=== PATIENT | female | born 1945 | race Caucasian/White ===

== ENCOUNTER 2017-09-16 13:22 | Emergency (ER) | payer MEDICARE ==
[~2017-09-16] VITALS: Ht 157.5 cm; Wt 101.6 kg
[2017-09-16 13:47] VITALS: BP 146/85
[2017-09-16] MEDS ORDERED: POTA20PA25 PO (14:49)
[2017-09-16] MEDS ORDERED: FURO-93 PO (14:49)
[2017-09-16] MEDS ORDERED: TIOT18CA INH (14:49)
[2017-09-16 15:19] LABS: BASOPHILS % (AUTO) 1 % (0-1); EOSINOPHILS # (AUTO) 0.44 x10^3/uL (0-0.4); EOSINOPHILS % (AUTO) 5 % (1-7); LYMPHOCYTES # (AUTO) 1.69 x10^3/uL (1-3.4); LYMPHOCYTES % (AUTO) 18 % (22-44); MD NO; MEAN CORPUSCULAR HEMOGLOBIN 30.1 pg (27.0-34.8); MEAN CORPUSCULAR VOLUME 91.2 fL (80-100); MEAN PLATELET VOLUME 7.5 fL (7.4-10.4); MONOCYTES # (AUTO) 0.79 x10^3/uL (0.2-0.8); MONOCYTES % (AUTO) 8 % (2-9); NEUTROPHILS # (AUTO) 6.47 x10^3/uL (1.8-6.8); NEUTROPHILS % (AUTO) 68 % (42-75); PLATELET COUNT 359 x10^3/uL (130-400); RED BLOOD COUNT 4.89 x10^6/uL (3.82-5.3); RED CELL DISTRIBUTION WIDTH 14.5 % (9.6-15.2)
[2017-09-16 15:21] LABS: ALANINE AMINOTRANSFERASE 34 U/L (12-78); ALBUMIN 3.5 g/dL (3.4-5.0); ANION GAP 9 mmol/L (5-15); CALCIUM 9.3 mg/dL (8.5-10.1); CHLORIDE 102 mmol/L (98-107); CREATININE 1.19 mg/dL (0.55-1.02)
[2017-09-16 15:25] LABS: ALKALINE PHOSPHATASE 134 U/L (45-117); BILIRUBIN,TOTAL 0.2 mg/dL (0.2-1.0)
[2017-09-16 15:32] LABS: INTERNATIONAL NORMALIZED RATIO 0.96 (0.93-1.1)
== END 2017-09-16 16:54 | disposition home or self-care (01) ==
LOC: ED 16:35
DX: G89.29 Other chronic pain (principal); I83.213 Varicose veins of right lower extremity with both ulcer of ankle and inflammation; I83.223 Varicose veins of left lower extremity with both ulcer of ankle and inflammation; L97.319 Non-pressure chronic ulcer of right ankle with unspecified severity; L97.329 Non-pressure chronic ulcer of left ankle with unspecified severity; J44.9 Chronic obstructive pulmonary disease, unspecified; Z87.891 Personal history of nicotine dependence
CPT/HCPCS: 36415; 80053; 83880; 85025; 85610; 85730; 93970; 99285

== ENCOUNTER 2017-11-26 16:50 | Inpatient (IN) | payer MEDICARE ==
[~2017-11-26] VITALS: Ht 154.9 cm; Wt 106.4 kg
[~2017-11-26 16:50] MED LIST: ENOXAPARIN 40 MG/0.4 ML SQ SCH; FURO-93 PO; POTA20PA25 PO; TIOT18CA INH
[2017-11-26] MEDS ORDERED: SODIUM CHLORIDE FLUSH 10ML SYR IVF ONE (17:30)
[2017-11-26] MEDS ORDERED: ENOXAPARIN 100 MG/ML ONE (17:39)
[2017-11-26] MEDS: DILTIAZEM 125 MG in SODIUM CHLORIDE 0.9% 100 ML IV SCH ×2 (17:41→21:07)
[2017-11-26 17:53] LABS: BASOPHILS % (AUTO) 1 % (0-1); EOSINOPHILS # (AUTO) 0.43 x10^3/uL (0-0.4); EOSINOPHILS % (AUTO) 4 % (1-7); LYMPHOCYTES % (AUTO) 18 % (22-44); MD NO; MEAN CORPUSCULAR HEMOGLOBIN 31.4 pg (27.0-34.8); MEAN CORPUSCULAR HGB CONC 33.7 g/dL (32.4-35.8); MEAN CORPUSCULAR VOLUME 93.3 fL (80-100); MEAN PLATELET VOLUME 8.1 fL (7.4-10.4); MONOCYTES # (AUTO) 0.74 x10^3/uL (0.2-0.8); MONOCYTES % (AUTO) 7 % (2-9); NEUTROPHILS # (AUTO) 7.18 x10^3/uL (1.8-6.8); NEUTROPHILS % (AUTO) 70 % (42-75); PLATELET COUNT 323 x10^3/uL (130-400); RED CELL DISTRIBUTION WIDTH 15.1 % (9.6-15.2)
[2017-11-26] MEDS ORDERED: DILTIAZEM 5 MG/ML, 5ML IVPush ONE (18:00)
[2017-11-26] MEDS ORDERED: ENOXAPARIN 100 MG/ML SQ ONE (18:00)
[2017-11-26 18:02] LABS: ALBUMIN 3.6 g/dL (3.4-5.0); ANION GAP 8 mmol/L (5-15); CALCIUM 9.1 mg/dL (8.5-10.1); CHLORIDE 102 mmol/L (98-107); INTERNATIONAL NORMALIZED RATIO 1.01 (0.93-1.1); PROTHROMBIN TIME 10.4 Seconds (9.6-11.5)
[2017-11-26 18:08] LABS: ALANINE AMINOTRANSFERASE 42 U/L (12-78); ALKALINE PHOSPHATASE 147 U/L (45-117); BILIRUBIN,TOTAL 0.3 mg/dL (0.2-1.0); CREATININE 1.07 mg/dL (0.55-1.02); TOTAL PROTEIN 8.1 g/dL (6.4-8.2); TROPONIN I < 0.015 ng/mL (0.000-0.045)
[2017-11-26] MEDS ORDERED: DOCUSATE 100 MG CAPSULE PO PRN (19:30)
[2017-11-26] MEDS ORDERED: GLUCAGON 1 MG IM PRN (19:30)
[2017-11-26] MEDS: ENOXAPARIN 40 MG/0.4 ML SQ SCH ×2 (19:30→20:29)
[2017-11-26] MEDS ORDERED: DILTIAZEM 5 MG/ML, 5ML IVPush PRN (19:30)
[2017-11-26] MEDS ORDERED: DEXTROSE 4 GM TAB.CHEW PO PRN (19:30)
[2017-11-26] MEDS ORDERED: DEXTROSE 50%, 50ML SYRINGE IVPush PRN (19:30)
[2017-11-26] MEDS ORDERED: TEMAZEPAM 15 MG CAPSULE PO PRN (19:30)
[2017-11-26] MEDS ORDERED: ONDANSETRON ODT 4 MG PO PRN (19:30)
[2017-11-26] MEDS ORDERED: POTASSIUM CHLORIDE 20 MEQ TAB.ER.PRT PO ONE (19:30)
[2017-11-26 20:00] LABS: HEMOGLOBIN A1C 5.6 % (4.2-6.3)
[2017-11-26 20:04] VITALS: BP 136/71
[2017-11-26] MEDS: NICOTINE 14MG/24 HR PATCH.TD24 TD SCH (20:29)
[2017-11-26] MEDS: DILTIAZEM 30 MG TABLET PO SCH (20:29)
[2017-11-26] MEDS: INSULIN LISPRO 100 UNITS/ML, PEN SQ-INSULIN SCH (20:30)
[2017-11-26] MEDS: DOXYCYCLINE 100MG TABLET PO SCH (20:30)
[2017-11-26] MEDS: SODIUM CHLORIDE FLUSH 10ML SYR IVF SCH (20:30)
[2017-11-26] MEDS ORDERED: ALBUTEROL SULFATE 2.5 MG/3 ML NPPB PRN (20:30)
[2017-11-26 22:34] VITALS: BP 136/72
[2017-11-27 00:10] LABS: TROPONIN I < 0.015 ng/mL (0.000-0.045)
[2017-11-27 02:04] VITALS: BP 122/73
[2017-11-27] MEDS: DILTIAZEM 30 MG TABLET PO SCH ×4 (02:06→19:39)
[2017-11-27] MEDS ORDERED: ALBU18HF IH (05:01)
[2017-11-27] MEDS: ENOXAPARIN 40 MG/0.4 ML SQ SCH (05:25)
[2017-11-27] MEDS: ASPIRIN 325 MG TABLET EC PO SCH (05:26)
[2017-11-27 06:13] LABS: BASOPHILS # (AUTO) 0.08 x10^3/uL (0-0.1); BASOPHILS % (AUTO) 1 % (0-1); EOSINOPHILS # (AUTO) 0.46 x10^3/uL (0-0.4); EOSINOPHILS % (AUTO) 4 % (1-7); LYMPHOCYTES # (AUTO) 1.77 x10^3/uL (1-3.4); LYMPHOCYTES % (AUTO) 16 % (22-44); MD NO; MEAN CORPUSCULAR HEMOGLOBIN 31.4 pg (27.0-34.8); MEAN CORPUSCULAR HGB CONC 33.3 g/dL (32.4-35.8); MEAN CORPUSCULAR VOLUME 94.1 fL (80-100); MEAN PLATELET VOLUME 7.8 fL (7.4-10.4); MONOCYTES # (AUTO) 0.91 x10^3/uL (0.2-0.8); MONOCYTES % (AUTO) 8 % (2-9); NEUTROPHILS # (AUTO) 7.64 x10^3/uL (1.8-6.8); NEUTROPHILS % (AUTO) 70 % (42-75); PLATELET COUNT 311 x10^3/uL (130-400); RED BLOOD COUNT 4.59 x10^6/uL (3.82-5.3); RED CELL DISTRIBUTION WIDTH 15.4 % (9.6-15.2)
[2017-11-27 06:27] LABS: TROPONIN I < 0.015 ng/mL (0.000-0.045)
[2017-11-27] MEDS: INSULIN LISPRO 100 UNITS/ML, PEN SQ-INSULIN SCH ×4 (07:00→19:58)
[2017-11-27] MEDS: ALBUTEROL/IPRATROPIUM 2.5MG/0.5MG, 3 ML NPPB SCH ×4 (07:17→19:33)
[2017-11-27 07:24] VITALS: BP 136/84
[2017-11-27 07:50] LABS: ALBUMIN 3.5 g/dL (3.4-5.0); ANION GAP 9 mmol/L (5-15); CALCIUM 9.3 mg/dL (8.5-10.1); CHLORIDE 103 mmol/L (98-107)
[2017-11-27 08:00] LABS: ALANINE AMINOTRANSFERASE 38 U/L (12-78); ALKALINE PHOSPHATASE 137 U/L (45-117); BILIRUBIN,TOTAL 0.4 mg/dL (0.2-1.0); CHOL/HDL RATIO 2.4; CHOLESTEROL, TOTAL 181 mg/dL (140-239); CREATININE 0.94 mg/dL (0.55-1.02); FREE T4 (FREE THYROXINE) 1.09 ng/dL (0.76-1.46); HDL CHOL % 43 % (28-40); HDL CHOLESTEROL (DIRECT) 77 mg/dL (40-60); LDL CHOLESTEROL,CALCULATED 76 mg/dL (54-169); TOTAL PROTEIN 7.9 g/dL (6.4-8.2); TRIGLYCERIDES 142 mg/dL (50-200); VLDL CHOLESTEROL 28 mg/dL (0-25)
[2017-11-27] MEDS ORDERED: POTASSIUM CHLORIDE 20 MEQ TAB.ER.PRT PO ONE (09:00)
[2017-11-27] MEDS: DOXYCYCLINE 100MG TABLET PO SCH ×2 (09:39→19:39)
[2017-11-27] MEDS: GUAIFENESIN/DM 200-20MG, 10ML UDC PO PRN (09:39)
[2017-11-27] MEDS: methylPREDNISolone SOD SUCC 40 MG/ML IV SCH (09:39)
[2017-11-27] MEDS: SODIUM CHLORIDE FLUSH 10ML SYR IVF SCH ×2 (09:40→19:38)
[2017-11-27 10:46] LABS: HCT (SEDRATE) 43.2 % (34.6-47.8)
[2017-11-27 12:29] VITALS: BP 135/82
[2017-11-27] MEDS: NICOTINE 14MG/24 HR PATCH.TD24 TD SCH (18:49)
[2017-11-27 20:32] VITALS: BP 116/75
[2017-11-28 00:52] VITALS: BP 137/84
[2017-11-28] MEDS: DILTIAZEM 30 MG TABLET PO SCH ×2 (02:02→07:52)
[2017-11-28] MEDS: GUAIFENESIN/DM 200-20MG, 10ML UDC PO PRN ×2 (02:07→10:56)
[2017-11-28] MEDS: DILTIAZEM 5 MG/ML, 10ML IVPush PRN ×3 (03:49→16:38)
[2017-11-28] MEDS ORDERED: DILTIAZEM 5 MG/ML, 10ML IVPush ONE (05:00)
[2017-11-28 05:04] LABS: BASOPHILS # (AUTO) 0.01 x10^3/uL (0-0.1); BASOPHILS % (AUTO) 0 % (0-1); EOSINOPHILS % (AUTO) 0 % (1-7); LYMPHOCYTES # (AUTO) 0.87 x10^3/uL (1-3.4); LYMPHOCYTES % (AUTO) 7 % (22-44); MD NO; MEAN CORPUSCULAR HEMOGLOBIN 31.1 pg (27.0-34.8); MEAN CORPUSCULAR VOLUME 94.3 fL (80-100); MEAN PLATELET VOLUME 7.8 fL (7.4-10.4); MONOCYTES # (AUTO) 0.57 x10^3/uL (0.2-0.8); MONOCYTES % (AUTO) 5 % (2-9); NEUTROPHILS # (AUTO) 11.23 x10^3/uL (1.8-6.8); NEUTROPHILS % (AUTO) 89 % (42-75); PLATELET COUNT 326 x10^3/uL (130-400); RED BLOOD COUNT 4.62 x10^6/uL (3.82-5.3); RED CELL DISTRIBUTION WIDTH 15.6 % (9.6-15.2)
[2017-11-28] MEDS: ALBUTEROL/IPRATROPIUM 2.5MG/0.5MG, 3 ML NPPB SCH ×4 (05:07→20:00)
[2017-11-28] MEDS: ENOXAPARIN 40 MG/0.4 ML SQ SCH (05:11)
[2017-11-28] MEDS: ASPIRIN 325 MG TABLET EC PO SCH (05:11)
[2017-11-28 05:16] LABS: ANION GAP 6 mmol/L (5-15); CALCIUM 9.7 mg/dL (8.5-10.1); CHLORIDE 103 mmol/L (98-107)
[2017-11-28 05:17] LABS: CREATININE 0.95 mg/dL (0.55-1.02)
[2017-11-28] MEDS: INSULIN LISPRO 100 UNITS/ML, PEN SQ-INSULIN SCH ×4 (07:00→21:00)
[2017-11-28] MEDS: FUROSEMIDE 40 MG/4 ML IV SCH ×2 (09:02→16:38)
[2017-11-28] MEDS: DOXYCYCLINE 100MG TABLET PO SCH ×2 (09:05→20:59)
[2017-11-28] MEDS: methylPREDNISolone SOD SUCC 40 MG/ML IV SCH (09:05)
[2017-11-28] MEDS: DILTIAZEM 90 MG CAP.ER.12H PO SCH ×2 (09:05→21:00)
[2017-11-28] MEDS: SODIUM CHLORIDE FLUSH 10ML SYR IVF SCH ×2 (09:06→21:00)
[2017-11-28 09:11] VITALS: BP 161/80
[2017-11-28 13:53] VITALS: BP 125/82
[2017-11-28] MEDS: NICOTINE 14MG/24 HR PATCH.TD24 TD SCH (19:45)
[2017-11-28] MEDS: APIXABAN 5 MG TABLET PO SCH (21:00)
[2017-11-28] MEDS ORDERED: NICOTINE 21 MG/24 HR PATCH.TD24 TD ONE (21:00)
[2017-11-28 21:34] VITALS: BP 121/81
[2017-11-29 02:00] VITALS: BP 113/60
[2017-11-29 04:50] LABS: ANION GAP 6 mmol/L (5-15); CALCIUM 9.2 mg/dL (8.5-10.1); CHLORIDE 102 mmol/L (98-107); CREATININE 1.01 mg/dL (0.55-1.02)
[2017-11-29 07:08] VITALS: BP 146/81
[2017-11-29] MEDS: ALBUTEROL/IPRATROPIUM 2.5MG/0.5MG, 3 ML NPPB SCH ×4 (07:17→20:00)
[2017-11-29] MEDS: INSULIN LISPRO 100 UNITS/ML, PEN SQ-INSULIN SCH ×4 (08:10→22:21)
[2017-11-29] MEDS: APIXABAN 5 MG TABLET PO SCH ×2 (08:46→22:19)
[2017-11-29] MEDS: DOXYCYCLINE 100MG TABLET PO SCH (08:47)
[2017-11-29] MEDS: DILTIAZEM 90 MG CAP.ER.12H PO SCH (08:47)
[2017-11-29] MEDS: FUROSEMIDE 40 MG/4 ML IV SCH (08:47)
[2017-11-29] MEDS: methylPREDNISolone SOD SUCC 40 MG/ML IV SCH (08:47)
[2017-11-29] MEDS: SODIUM CHLORIDE FLUSH 10ML SYR IVF SCH ×2 (08:52→22:20)
[2017-11-29 10:44] VITALS: BP 138/78
[2017-11-29] MEDS: CEFDINIR 300 MG CAPSULE PO SCH ×2 (10:45→22:19)
[2017-11-29] MEDS: DILTIAZEM 30 MG TABLET PO SCH ×2 (10:45→17:04)
[2017-11-29 15:29] VITALS: BP 131/83
[2017-11-29 20:09] VITALS: BP 125/82
[2017-11-29] MEDS: ACETAMINOPHEN 325 MG TABLET PO PRN (20:20)
[2017-11-29] MEDS ORDERED: NICOTINE 21 MG/24 HR PATCH.TD24 TD SCH (21:00)
[2017-11-29] MEDS: DILTIAZEM 120 MG CAP.ER.12H PO SCH (22:19)
[2017-11-29] MEDS: NICOTINE 14MG/24 HR PATCH.TD24 TD SCH (22:20)
[2017-11-30 01:22] VITALS: BP 106/72
[2017-11-30 04:49] LABS: BASOPHILS # (AUTO) 0.03 x10^3/uL (0-0.1); BASOPHILS % (AUTO) 0 % (0-1); EOSINOPHILS % (AUTO) 0 % (1-7); LYMPHOCYTES # (AUTO) 0.96 x10^3/uL (1-3.4); LYMPHOCYTES % (AUTO) 7 % (22-44); MD NO; MEAN CORPUSCULAR HEMOGLOBIN 31.2 pg (27.0-34.8); MEAN CORPUSCULAR VOLUME 94.5 fL (80-100); MEAN PLATELET VOLUME 8.1 fL (7.4-10.4); MONOCYTES # (AUTO) 1.06 x10^3/uL (0.2-0.8); MONOCYTES % (AUTO) 7 % (2-9); NEUTROPHILS # (AUTO) 12.17 x10^3/uL (1.8-6.8); NEUTROPHILS % (AUTO) 86 % (42-75); PLATELET COUNT 298 x10^3/uL (130-400); RED BLOOD COUNT 4.52 x10^6/uL (3.82-5.3); RED CELL DISTRIBUTION WIDTH 15.1 % (9.6-15.2)
[2017-11-30 04:58] LABS: ANION GAP 5 mmol/L (5-15); CALCIUM 9.2 mg/dL (8.5-10.1); CHLORIDE 101 mmol/L (98-107); CREATININE 0.77 mg/dL (0.55-1.02)
[2017-11-30 06:40] VITALS: BP 139/78
[2017-11-30] MEDS: ALBUTEROL/IPRATROPIUM 2.5MG/0.5MG, 3 ML NPPB SCH ×4 (07:00→18:59)
[2017-11-30] MEDS: INSULIN LISPRO 100 UNITS/ML, PEN SQ-INSULIN SCH ×3 (07:40→16:00)
[2017-11-30] MEDS ORDERED: POTASSIUM CHLORIDE 20 MEQ TAB.ER.PRT PO SCH (08:00)
[2017-11-30] MEDS: SODIUM CHLORIDE FLUSH 10ML SYR IVF SCH (09:00)
[2017-11-30] MEDS ORDERED: FUROSEMIDE 20 MG TABLET PO SCH (09:00)
[2017-11-30] MEDS: methylPREDNISolone SOD SUCC 40 MG/ML IV SCH (09:57)
[2017-11-30] MEDS: CEFDINIR 300 MG CAPSULE PO SCH ×2 (09:58→18:05)
[2017-11-30] MEDS: APIXABAN 5 MG TABLET PO SCH ×2 (09:59→18:05)
[2017-11-30] MEDS: DILTIAZEM 120 MG CAP.ER.12H PO SCH ×2 (10:09→18:05)
[2017-11-30 10:10] VITALS: BP 137/80
[2017-11-30] MEDS: ACETAMINOPHEN 325 MG TABLET PO PRN (12:06)
[2017-11-30] MEDS: GUAIFENESIN/DM 200-20MG, 10ML UDC PO PRN (12:09)
[2017-11-30 12:33] VITALS: BP 128/80
[2017-11-30] MEDS ORDERED: NICO-486 TD (14:26)
[2017-11-30] MEDS ORDERED: CEFD300C37 PO (14:26)
[2017-11-30] MEDS ORDERED: DILT120C11 PO (14:26)
[2017-11-30] MEDS ORDERED: IPRA3AMP30 NPPB (14:26)
[2017-11-30] MEDS ORDERED: NICO-487 TD (14:26)
[2017-11-30] MEDS ORDERED: METH4TAB2 PO (14:26)
[2017-11-30] MEDS ORDERED: NICO-485 TD (14:26)
[2017-11-30] MEDS ORDERED: ALBU18HF IH (14:26)
[2017-11-30] MEDS ORDERED: APIX5TAB PO (14:26)
[2017-11-30] MEDS: NICOTINE 14MG/24 HR PATCH.TD24 TD SCH (15:31)
[2017-11-30 18:04] VITALS: BP 134/79
== END 2017-11-30 20:00 | disposition home or self-care (01) | DRG 189 ==
LOC: ED 18:33 → EDIP 18:35 → 5SO 19:53
PROVIDERS: ADMIT Internal Medicine; ATTEND Internal Medicine
DX: J96.20 Acute and chronic respiratory failure, unspecified whether with hypoxia or hypercapnia (principal); J44.1 Chronic obstructive pulmonary disease with (acute) exacerbation; Z68.41 Body mass index [BMI] 40.0-44.9, adult; I48.91 Unspecified atrial fibrillation; I27.20 Pulmonary hypertension, unspecified; J06.9 Acute upper respiratory infection, unspecified; F17.210 Nicotine dependence, cigarettes, uncomplicated; E66.9 Obesity, unspecified; E87.6 Hypokalemia; I87.8 Other specified disorders of veins; N28.9 Disorder of kidney and ureter, unspecified; Z99.81 Dependence on supplemental oxygen; F12.10 Cannabis abuse, uncomplicated; F10.10 Alcohol abuse, uncomplicated; R73.9 Hyperglycemia, unspecified; I08.3 Combined rheumatic disorders of mitral, aortic and tricuspid valves; B96.20 Unspecified Escherichia coli [E. coli] as the cause of diseases classified elsewhere; Z79.899 Other long term (current) drug therapy
CPT/HCPCS: 36415; 71045; 80048; 80053; 80061; 82962; 83036; 83735; 83880; 84100; 84145; 84439; 84443; 84484; 85025; 85610; 85651; 85730; 86140; 87070; 87077; 87186; 87205; 93005; 93306; 94640; 96372; 96374; 99291; G0378; J1650; J1940; J7613; J7620; J1815; J2920

== ENCOUNTER 2017-12-28 18:22 | Inpatient (IN) | payer MEDICARE ==
[~2017-12-28] VITALS: Ht 154.9 cm; Wt 109.8 kg
[~2017-12-28 18:22] MED LIST changes: +ALBU18HF IH; +APIX5TAB PO; +CEFD300C37 PO; +DILT120C11 PO; -ENOXAPARIN 40 MG/0.4 ML SQ SCH; +IPRA3AMP30 NPPB; +METH4TAB2 PO; +NICO-485 TD; +NICO-486 TD; +NICO-487 TD
[2017-12-28] MEDS ORDERED: ALBUTEROL/IPRATROPIUM 2.5MG/0.5MG, 3 ML NPPB ONE (18:30)
[2017-12-28] MEDS ORDERED: ALBUTEROL/IPRATROPIUM 2.5MG/0.5MG, 3 ML ONE (18:40)
[2017-12-28] MEDS ORDERED: SODIUM CHLORIDE 0.9%, 500ML IVBOLUS ONE (19:00)
[2017-12-28 19:12] LABS: BASOPHILS # (AUTO) 0.01 x10^3/uL (0-0.1); BASOPHILS % (AUTO) 0 % (0-1); EOSINOPHILS # (AUTO) 0.41 x10^3/uL (0-0.4); EOSINOPHILS % (AUTO) 4 % (1-7); LYMPHOCYTES # (AUTO) 1.04 x10^3/uL (1-3.4); LYMPHOCYTES % (AUTO) 10 % (22-44); MD NO; MEAN CORPUSCULAR HEMOGLOBIN 31.6 pg (27.0-34.8); MEAN CORPUSCULAR HGB CONC 33.8 g/dL (32.4-35.8); MEAN CORPUSCULAR VOLUME 93.4 fL (80-100); MEAN PLATELET VOLUME 7.3 fL (7.4-10.4); MONOCYTES # (AUTO) 0.66 x10^3/uL (0.2-0.8); MONOCYTES % (AUTO) 6 % (2-9); NEUTROPHILS # (AUTO) 8.71 x10^3/uL (1.8-6.8); NEUTROPHILS % (AUTO) 80 % (42-75); PLATELET COUNT 410 x10^3/uL (130-400); RED BLOOD COUNT 3.48 x10^6/uL (3.82-5.3); RED CELL DISTRIBUTION WIDTH 15.7 % (9.6-15.2)
[2017-12-28 19:24] LABS: ALBUMIN 3.3 g/dL (3.4-5.0); ANION GAP 10 mmol/L (5-15); CALCIUM 9.4 mg/dL (8.5-10.1); CHLORIDE 102 mmol/L (98-107); CREATININE 0.79 mg/dL (0.55-1.02)
[2017-12-28] MEDS ORDERED: ALBUTEROL SULFATE 2.5 MG/3 ML ONE (19:24)
[2017-12-28] MEDS ORDERED: ALBUTEROL SULFATE 2.5 MG/3 ML NPPB PRN (19:30)
[2017-12-28 19:34] LABS: TROPONIN I < 0.015 ng/mL (0.000-0.045)
[2017-12-28] MEDS ORDERED: NS + 20MEQ KCL 1,000 ML IV SCH (20:26)
[2017-12-28] MEDS ORDERED: LABETALOL 5MG/ML, 20ML IVPush PRN (20:30)
[2017-12-28] MEDS ORDERED: DILTIAZEM 5 MG/ML, 5ML IVPush ONE ×2 (20:30→23:00)
[2017-12-28] MEDS ORDERED: DOCUSATE 100 MG CAPSULE PO PRN (20:30)
[2017-12-28] MEDS ORDERED: ENALAPRILAT 1.25 MG/ML, 2ML IV PRN (20:30)
[2017-12-28] MEDS ORDERED: FUROSEMIDE 40 MG/4 ML IV ONE ×2 (20:30→23:00)
[2017-12-28] MEDS ORDERED: hydrALAzine 20 MG/ML, 1ML IV PRN (20:30)
[2017-12-28] MEDS ORDERED: morphine SULFATE 10 MG/ML, 1ML IVPush PRN (20:30)
[2017-12-28] MEDS ORDERED: LORazepam 0.5MG TABLET PO ONE (20:30)
[2017-12-28] MEDS ORDERED: GUAIFENESIN/COD200MG-20MG/10ML LIQUID PO PRN (20:30)
[2017-12-28] MEDS ORDERED: POLYETHYLENE GLYCOL 17 GM PACKET PO PRN (20:30)
[2017-12-28] MEDS ORDERED: VANCOMYCIN PER PHARMACY MC PRN (20:30)
[2017-12-28] MEDS ORDERED: HYDROcodone/APAP 5/325 TABLET PO PRN (20:30)
[2017-12-28] MEDS ORDERED: ENOXAPARIN 40 MG/0.4 ML SQ SCH (20:30)
[2017-12-28] MEDS ORDERED: ONDANSETRON 2MG/ML, 2ML IVPush PRN (20:30)
[2017-12-28] MEDS ORDERED: SULF1TAB24 PO (21:01)
[2017-12-28] MEDS ORDERED: POTA20TA37 PO (21:01)
[2017-12-28] MEDS ORDERED: ALBUTEROL HFA 90 MCG/SPRAY INH PRN (21:30)
[2017-12-28 21:43] VITALS: BP 141/72
[2017-12-28 22:00] VITALS: BP 141/72
[2017-12-28] MEDS ORDERED: PHARMACOKINETIC CONSULTATION MC ONE (22:00)
[2017-12-28] MEDS ORDERED: PHARMACOKINETIC MONITORING MC PRN (22:00)
[2017-12-28] MEDS: PIPERACILLIN/TAZO/PMX 3.375GM 50 ML IV SCH (22:48)
[2017-12-28] MEDS: methylPREDNISolone SOD SUCC 125 MG/2 ML IVPush SCH (22:48)
[2017-12-28] MEDS: ALBUTEROL/IPRATROPIUM 2.5MG/0.5MG, 3 ML NPPB SCH (23:21)
[2017-12-28] MEDS: VANCOMYCIN 1,600 MG in SODIUM CHLORIDE 0.9% 250 ML IV SCH (23:35)
[2017-12-29 02:04] VITALS: BP 114/69
[2017-12-29] MEDS: ALBUTEROL/IPRATROPIUM 2.5MG/0.5MG, 3 ML NPPB SCH ×6 (03:40→23:50)
[2017-12-29] MEDS: PIPERACILLIN/TAZO/PMX 3.375GM 50 ML IV SCH ×4 (04:43→23:18)
[2017-12-29] MEDS ORDERED: IPRATROPIUM 0.5 MG/2.5 ML INHA NPPB SCH (07:00)
[2017-12-29] MEDS ORDERED: ALBUTEROL SULFATE 2.5 MG/3 ML NPPB SCH (07:00)
[2017-12-29] MEDS: DILTIAZEM 120 MG CAP.ER.12H PO SCH ×2 (08:28→21:49)
[2017-12-29] MEDS: methylPREDNISolone SOD SUCC 125 MG/2 ML IVPush SCH ×3 (08:28→23:16)
[2017-12-29] MEDS: NICOTINE 7 MG/24 HR PATCH.TD24 TD SCH (08:29)
[2017-12-29] MEDS: SENNA/DOCUSATE TABLET PO SCH (08:29)
[2017-12-29] MEDS: APIXABAN 5 MG TABLET PO SCH ×2 (08:29→21:48)
[2017-12-29 09:43] VITALS: BP 130/63
[2017-12-29] MEDS: FUROSEMIDE 40 MG/4 ML IV SCH ×2 (11:29→17:44)
[2017-12-29] MEDS: POTASSIUM CHLORIDE 20 MEQ TAB.ER.PRT PO SCH (11:29)
[2017-12-29 12:09] VITALS: BP 142/82
[2017-12-29 19:50] VITALS: BP 124/61
[2017-12-29 21:47] VITALS: BP 116/64
[2017-12-29] MEDS: VANCOMYCIN 1,600 MG in SODIUM CHLORIDE 0.9% 250 ML IV SCH (21:49)
[2017-12-30 00:57] VITALS: BP 119/79
[2017-12-30] MEDS: ACETAMINOPHEN 325 MG TABLET PO PRN ×2 (01:47→09:03)
[2017-12-30] MEDS: ALBUTEROL/IPRATROPIUM 2.5MG/0.5MG, 3 ML NPPB SCH ×6 (03:10→23:58)
[2017-12-30 05:29] LABS: ALBUMIN 3.1 g/dL (3.4-5.0); ANION GAP 7 mmol/L (5-15); CALCIUM 8.6 mg/dL (8.5-10.1); CHLORIDE 102 mmol/L (98-107); CREATININE 0.87 mg/dL (0.55-1.02)
[2017-12-30] MEDS: PIPERACILLIN/TAZO/PMX 3.375GM 50 ML IV SCH ×2 (05:36→11:18)
[2017-12-30 07:02] VITALS: BP 100/62
[2017-12-30] MEDS: FUROSEMIDE 40 MG/4 ML IV SCH ×2 (09:02→17:55)
[2017-12-30] MEDS: methylPREDNISolone SOD SUCC 125 MG/2 ML IVPush SCH ×2 (09:02→16:07)
[2017-12-30] MEDS: APIXABAN 5 MG TABLET PO SCH ×2 (09:02→20:39)
[2017-12-30] MEDS: DILTIAZEM 120 MG CAP.ER.12H PO SCH ×2 (09:03→20:39)
[2017-12-30] MEDS: SENNA/DOCUSATE TABLET PO SCH (09:03)
[2017-12-30] MEDS: POTASSIUM CHLORIDE 20 MEQ TAB.ER.PRT PO SCH (09:03)
[2017-12-30] MEDS: NICOTINE 7 MG/24 HR PATCH.TD24 TD SCH (09:04)
[2017-12-30] MEDS ORDERED: METH4TAB2 PO (11:59)
[2017-12-30] MEDS: LORazepam 1MG TABLET PO PRN (16:26)
[2017-12-30 16:28] VITALS: BP 119/73
[2017-12-30 19:49] VITALS: BP 125/75
[2017-12-31] MEDS: methylPREDNISolone SOD SUCC 125 MG/2 ML IVPush SCH ×2 (00:10→08:42)
[2017-12-31 01:28] VITALS: BP 129/77
[2017-12-31] MEDS: ALBUTEROL/IPRATROPIUM 2.5MG/0.5MG, 3 ML NPPB SCH ×4 (04:00→15:30)
[2017-12-31 07:10] VITALS: BP 110/69
[2017-12-31] MEDS: APIXABAN 5 MG TABLET PO SCH (08:42)
[2017-12-31] MEDS: FUROSEMIDE 40 MG/4 ML IV SCH (08:42)
[2017-12-31] MEDS: POTASSIUM CHLORIDE 20 MEQ TAB.ER.PRT PO SCH (08:43)
[2017-12-31] MEDS: DILTIAZEM 120 MG CAP.ER.12H PO SCH (08:43)
[2017-12-31] MEDS: SENNA/DOCUSATE TABLET PO SCH (08:43)
[2017-12-31] MEDS ORDERED: NICOTINE 7 MG/24 HR PATCH.TD24 TD SCH (09:00)
[2017-12-31] MEDS: LORazepam 1MG TABLET PO PRN (09:14)
[2017-12-31 12:49] VITALS: BP 129/84
== END 2017-12-31 16:35 | disposition home or self-care (01) | DRG 291 ==
LOC: ED 19:20 → EDIP 20:17 → 4WST 21:13 → DCLOUNGE 12-31 16:25
PROVIDERS: ADMIT Family Medicine; ATTEND Family Medicine
DX: I11.0 Hypertensive heart disease with heart failure (principal); J96.21 Acute and chronic respiratory failure with hypoxia; E43 Unspecified severe protein-calorie malnutrition; J44.1 Chronic obstructive pulmonary disease with (acute) exacerbation; Z68.42 Body mass index [BMI] 45.0-49.9, adult; D68.69 Other thrombophilia; L03.116 Cellulitis of left lower limb; L03.115 Cellulitis of right lower limb; I50.33 Acute on chronic diastolic (congestive) heart failure; E66.01 Morbid (severe) obesity due to excess calories; F41.0 Panic disorder [episodic paroxysmal anxiety]; I48.0 Paroxysmal atrial fibrillation; I87.8 Other specified disorders of veins; Z79.01 Long term (current) use of anticoagulants; Z83.3 Family history of diabetes mellitus; Z87.01 Personal history of pneumonia (recurrent); Z87.891 Personal history of nicotine dependence; Z99.81 Dependence on supplemental oxygen
CPT/HCPCS: 36415; 71045; 80048; 82040; 83735; 83880; 84100; 84484; 85025; 93005; 94640; G0378; J1940; J2543; J3370; J3480; J7613; J7620; J2930; J7040; J7050; J7512

== ENCOUNTER 2018-01-11 15:51 | Inpatient (IN) | payer MEDICARE ==
[~2018-01-11] VITALS: Ht 156.2 cm; Wt 111.2 kg
[~2018-01-11 15:51] MED LIST changes: +POTA20TA37 PO; +SULF1TAB24 PO
[2018-01-11] MEDS ORDERED: PLEASE ENTER HEIGHT AND WEIGHT MC SCH (16:30)
[2018-01-11] MEDS ORDERED: SODIUM CHLORIDE FLUSH 10ML SYR IVF ONE (16:30)
[2018-01-11 17:52] LABS: MEAN CORPUSCULAR HEMOGLOBIN 31.5 pg (27.0-34.8); MEAN CORPUSCULAR HGB CONC 33.4 g/dL (32.4-35.8); MEAN CORPUSCULAR VOLUME 94.5 fL (80-100); MEAN PLATELET VOLUME 7.4 fL (7.4-10.4); PLATELET COUNT 337 x10^3/uL (130-400); RED BLOOD COUNT 2.76 x10^6/uL (3.82-5.3); RED CELL DISTRIBUTION WIDTH 17.8 % (9.6-15.2)
[2018-01-11 18:00] LABS: MD YES
[2018-01-11] MEDS ORDERED: HYDROcodone/APAP 5/325 TABLET PO ONE (18:00)
[2018-01-11 18:05] LABS: ALBUMIN 2.8 g/dL (3.4-5.0); ANION GAP 7 mmol/L (5-15); CALCIUM 8.7 mg/dL (8.5-10.1); CHLORIDE 97 mmol/L (98-107)
[2018-01-11 18:10] LABS: ALANINE AMINOTRANSFERASE 39 U/L (12-78); ALKALINE PHOSPHATASE 133 U/L (45-117); BILIRUBIN,TOTAL 0.7 mg/dL (0.2-1.0); CREATININE 0.82 mg/dL (0.55-1.02); TOTAL PROTEIN 6.9 g/dL (6.4-8.2)
[2018-01-11] MEDS ORDERED: HYDROcodone/APAP 5/325 TABLET ONE (18:10)
[2018-01-11 18:11] LABS: TROPONIN I < 0.015 ng/mL (0.000-0.045)
[2018-01-11 18:29] LABS: EOS#(MANUAL) 0.42 x10^3/uL (0.0-0.4); EOS% (MANUAL) 2 % (1-7); LYMPH#(MANUAL) 1.88 x10^3/uL (1-3.4); LYMPHS% (MANUAL) 9 % (22-44); MONOS#(MANUAL) 0.84 x10^3/uL (0.3-2.7); MONOS% (MANUAL) 4 % (2-9); SEG#(MANUAL) 17.77 x10^3/uL (1.8-6.8); SEGS% (MANUAL) 85 % (42-75)
[2018-01-11 18:30] LABS: <PLATELET ESTIMATE> ADEQUATE; <PLT MORPHOLOGY> NORMAL PLT MORPH; <RBC MORPHOLOGY> NORMAL
[2018-01-11] MEDS ORDERED: FUROSEMIDE 20 MG/2 ML ONE (18:47)
[2018-01-11] MEDS ORDERED: FUROSEMIDE 40 MG/4 ML IV ONE (19:00)
[2018-01-11] MEDS ORDERED: METOPROLOL 1 MG/ML, 5ML IVPush ONE (19:00)
[2018-01-11] MEDS ORDERED: SULF-169 PO (19:02)
[2018-01-11] MEDS ORDERED: FLUT1DIS3 INH (19:04)
[2018-01-11] MEDS ORDERED: NICO-487 TD (19:05)
[2018-01-11] MEDS ORDERED: METOPROLOL 1 MG/ML, 5ML ONE (20:10)
[2018-01-11] MEDS ORDERED: SODIUM CHLORIDE 0.9% 1,000 ML IV SCH (20:15)
[2018-01-11 20:27] VITALS: BP 90/73
[2018-01-11] MEDS ORDERED: ONDANSETRON 2MG/ML, 2ML IVPush PRN (20:30)
[2018-01-11] MEDS ORDERED: POLYETHYLENE GLYCOL 17 GM PACKET PO PRN (20:30)
[2018-01-11] MEDS ORDERED: VANCOMYCIN PER PHARMACY MC PRN (20:30)
[2018-01-11] MEDS ORDERED: ALBUTEROL SULFATE 2.5 MG/3 ML HHN PRN (20:30)
[2018-01-11 20:32] LABS: MICROSCOPIC AUTO
[2018-01-11 20:43] LABS: CULTURE INDICATED? YES
[2018-01-11 20:45] VITALS: BP 112/63
[2018-01-11] MEDS ORDERED: PHARMACOKINETIC CONSULTATION MC ONE (21:30)
[2018-01-11] MEDS ORDERED: VANCOMYCIN 1,900 MG in SODIUM CHLORIDE 0.9% 250 ML IV SCH (21:30)
[2018-01-11] MEDS ORDERED: BUDESONIDE 0.5 MG/2 ML INHA HHN SCH (21:30)
[2018-01-11] MEDS ORDERED: PHARMACOKINETIC MONITORING MC PRN (21:30)
[2018-01-11] MEDS ORDERED: ALBUTEROL SULFATE 2.5 MG/3 ML HHN SCH (21:30)
[2018-01-11 21:40] VITALS: BP 123/67
[2018-01-11 22:00] VITALS: BP 123/67
[2018-01-11 22:17] VITALS: BP 123/67
[2018-01-11] MEDS: DILTIAZEM 125 MG in SODIUM CHLORIDE 0.9% 100 ML IV SCH (22:51)
[2018-01-11 23:39] LABS: TROPONIN I < 0.015 ng/mL (0.000-0.045)
[2018-01-11] MEDS: PANTOPRAZOLE 40 MG IV IVPush SCH (23:43)
[2018-01-11] MEDS: NICOTINE 21 MG/24 HR PATCH.TD24 TD SCH (23:44)
[2018-01-12 02:16] LABS: MEAN CORPUSCULAR HEMOGLOBIN 30.9 pg (27.0-34.8); MEAN CORPUSCULAR HGB CONC 33.1 g/dL (32.4-35.8); MEAN CORPUSCULAR VOLUME 93.5 fL (80-100); MEAN PLATELET VOLUME 7.5 fL (7.4-10.4); PLATELET COUNT 303 x10^3/uL (130-400); RED BLOOD COUNT 2.88 x10^6/uL (3.82-5.3); RED CELL DISTRIBUTION WIDTH 18.9 % (9.6-15.2)
[2018-01-12 02:31] LABS: ALBUMIN 2.7 g/dL (3.4-5.0); ANION GAP 5 mmol/L (5-15); CALCIUM 8.3 mg/dL (8.5-10.1); CHLORIDE 97 mmol/L (98-107)
[2018-01-12 02:36] LABS: TROPONIN I < 0.015 ng/mL (0.000-0.045)
[2018-01-12 02:42] LABS: ALANINE AMINOTRANSFERASE 44 U/L (12-78); ALKALINE PHOSPHATASE 129 U/L (45-117); BILIRUBIN,TOTAL 2.2 mg/dL (0.2-1.0); CREATININE 0.81 mg/dL (0.55-1.02); TOTAL PROTEIN 6.5 g/dL (6.4-8.2)
[2018-01-12 02:56] VITALS: BP 112/76
[2018-01-12 02:59] LABS: BASOPHILS # (AUTO) 0.09 x10^3/uL (0-0.1); BASOPHILS % (AUTO) 1 % (0-1); EOSINOPHILS # (AUTO) 0.44 x10^3/uL (0-0.4); EOSINOPHILS % (AUTO) 2 % (1-7); LYMPHOCYTES # (AUTO) 2.15 x10^3/uL (1-3.4); LYMPHOCYTES % (AUTO) 12 % (22-44); MD SCAN; MONOCYTES # (AUTO) 1.24 x10^3/uL (0.2-0.8); MONOCYTES % (AUTO) 7 % (2-9); NEUTROPHILS # (AUTO) 14.39 x10^3/uL (1.8-6.8); NEUTROPHILS % (AUTO) 79 % (42-75)
[2018-01-12] MEDS: DILTIAZEM 125 MG in SODIUM CHLORIDE 0.9% 100 ML IV SCH ×2 (05:57→13:10)
[2018-01-12 07:06] VITALS: BP 117/76
[2018-01-12] MEDS ORDERED: FUROSEMIDE 20 MG/2 ML IV ONE (08:00)
[2018-01-12] MEDS: CEFTRIAXONE PMX 1GM/50ML 50 ML IV SCH (08:41)
[2018-01-12] MEDS: ALBUTEROL/IPRATROPIUM 2.5MG/0.5MG, 3 ML NPPB SCH ×4 (09:18→19:55)
[2018-01-12] MEDS: BUDESONIDE 0.5 MG/2 ML INHA HHN SCH ×2 (09:18→19:55)
[2018-01-12] MEDS: DOXYCYCLINE 100 MG in DEXTROSE 5% 250 ML IV SCH ×2 (09:28→21:10)
[2018-01-12] MEDS: PANTOPRAZOLE 40 MG IV IVPush SCH ×2 (12:14→21:10)
[2018-01-12 12:23] LABS: O2 FLOW 4 L/min
[2018-01-12 12:50] VITALS: BP 119/77
[2018-01-12] MEDS: METOPROLOL TARTRATE 25 MG TABLET PO SCH ×2 (14:50→21:10)
[2018-01-12] MEDS: POTASSIUM CHLORIDE 20 MEQ TAB.ER.PRT PO SCH (16:02)
[2018-01-12] MEDS: FUROSEMIDE 20 MG/2 ML IV SCH (16:04)
[2018-01-12 19:06] VITALS: BP 128/78
[2018-01-12] MEDS ORDERED: DILTIAZEM 120 MG CAP.ER.12H PO SCH (21:00)
[2018-01-12] MEDS: NICOTINE 21 MG/24 HR PATCH.TD24 TD SCH (21:10)
[2018-01-13] VITALS (9 sets, daily range): BP systolic 87–110; BP diastolic 58–75
[2018-01-13 02:40] LABS: BASOPHILS # (AUTO) 0.11 x10^3/uL (0-0.1); BASOPHILS % (AUTO) 1 % (0-1); EOSINOPHILS # (AUTO) 0.63 x10^3/uL (0-0.4); EOSINOPHILS % (AUTO) 4 % (1-7); LYMPHOCYTES # (AUTO) 1.52 x10^3/uL (1-3.4); LYMPHOCYTES % (AUTO) 9 % (22-44); MD NO; MEAN CORPUSCULAR HEMOGLOBIN 30.7 pg (27.0-34.8); MEAN CORPUSCULAR HGB CONC 32.9 g/dL (32.4-35.8); MEAN CORPUSCULAR VOLUME 93.3 fL (80-100); MEAN PLATELET VOLUME 7.9 fL (7.4-10.4); MONOCYTES # (AUTO) 1.09 x10^3/uL (0.2-0.8); MONOCYTES % (AUTO) 7 % (2-9); NEUTROPHILS # (AUTO) 13.04 x10^3/uL (1.8-6.8); NEUTROPHILS % (AUTO) 80 % (42-75); PLATELET COUNT 297 x10^3/uL (130-400); RED BLOOD COUNT 2.74 x10^6/uL (3.82-5.3); RED CELL DISTRIBUTION WIDTH 18.8 % (9.6-15.2)
[2018-01-13 02:48] LABS: ALANINE AMINOTRANSFERASE 42 U/L (12-78); ALBUMIN 2.4 g/dL (3.4-5.0); ANION GAP 7 mmol/L (5-15); CALCIUM 8.3 mg/dL (8.5-10.1); CHLORIDE 96 mmol/L (98-107); CREATININE 0.71 mg/dL (0.55-1.02)
[2018-01-13 02:51] LABS: ALKALINE PHOSPHATASE 131 U/L (45-117); BILIRUBIN,TOTAL 0.5 mg/dL (0.2-1.0); TOTAL PROTEIN 6.4 g/dL (6.4-8.2)
[2018-01-13] MEDS: METOPROLOL TARTRATE 25 MG TABLET PO SCH ×2 (06:13→16:19)
[2018-01-13] MEDS: ALBUTEROL/IPRATROPIUM 2.5MG/0.5MG, 3 ML NPPB SCH ×4 (07:00→20:00)
[2018-01-13] MEDS: BUDESONIDE 0.5 MG/2 ML INHA HHN SCH ×2 (07:00→19:00)
[2018-01-13] MEDS: CEFTRIAXONE PMX 1GM/50ML 50 ML IV SCH (08:17)
[2018-01-13] MEDS: TEMPLATE NON-FORMULARY MED. (Fluticasone/Salmeterol** (Advair 250-50 Diskus**) 1 PUFF) INH SCH (09:00)
[2018-01-13] MEDS: FUROSEMIDE 20 MG/2 ML IV SCH ×2 (09:13→17:23)
[2018-01-13] MEDS: POTASSIUM CHLORIDE 20 MEQ TAB.ER.PRT PO SCH ×2 (09:13→17:23)
[2018-01-13] MEDS: DOXYCYCLINE 100 MG in DEXTROSE 5% 250 ML IV SCH ×2 (10:38→22:27)
[2018-01-13] MEDS: PANTOPRAZOLE 40 MG IV IVPush SCH ×2 (10:38→22:28)
[2018-01-13] MEDS ORDERED: PROPOFOL 10 MG/ML, 20ML ONE (14:58)
[2018-01-13] MEDS ORDERED: SODIUM CHLORIDE 0.9%, 250ML IVBOLUS ONE (16:30)
[2018-01-13] MEDS: ACETAMINOPHEN 325 MG TABLET PO PRN (20:34)
[2018-01-13] MEDS: NICOTINE 21 MG/24 HR PATCH.TD24 TD SCH (22:33)
[2018-01-14] VITALS (9 sets, daily range): BP systolic 87–109; BP diastolic 51–70
[2018-01-14] MEDS: METOPROLOL TARTRATE 25 MG TABLET PO SCH ×3 (00:18→15:52)
[2018-01-14] MEDS: ALBUTEROL/IPRATROPIUM 2.5MG/0.5MG, 3 ML NPPB SCH ×6 (02:47→23:44)
[2018-01-14 05:32] LABS: ALBUMIN 2.4 g/dL (3.4-5.0); ANION GAP 4 mmol/L (5-15); CALCIUM 8.4 mg/dL (8.5-10.1); CHLORIDE 98 mmol/L (98-107); CREATININE 0.68 mg/dL (0.55-1.02)
[2018-01-14 05:36] LABS: BASOPHILS # (AUTO) 0.05 x10^3/uL (0-0.1); BASOPHILS % (AUTO) 1 % (0-1); EOSINOPHILS # (AUTO) 0.36 x10^3/uL (0-0.4); EOSINOPHILS % (AUTO) 4 % (1-7); LYMPHOCYTES # (AUTO) 1.02 x10^3/uL (1-3.4); LYMPHOCYTES % (AUTO) 12 % (22-44); MD NO; MEAN CORPUSCULAR HGB CONC 33.1 g/dL (32.4-35.8); MEAN CORPUSCULAR VOLUME 93.6 fL (80-100); MEAN PLATELET VOLUME 7.7 fL (7.4-10.4); MONOCYTES # (AUTO) 0.68 x10^3/uL (0.2-0.8); MONOCYTES % (AUTO) 8 % (2-9); NEUTROPHILS # (AUTO) 6.28 x10^3/uL (1.8-6.8); NEUTROPHILS % (AUTO) 75 % (42-75); PLATELET COUNT 278 x10^3/uL (130-400); RED BLOOD COUNT 2.76 x10^6/uL (3.82-5.3); RED CELL DISTRIBUTION WIDTH 18.3 % (9.6-15.2)
[2018-01-14] MEDS: BUDESONIDE 0.5 MG/2 ML INHA HHN SCH ×3 (07:00→23:44)
[2018-01-14] MEDS: CEFTRIAXONE PMX 1GM/50ML 50 ML IV SCH (07:30)
[2018-01-14] MEDS ORDERED: DIGOXIN 0.25 MG/ML, 2ML IVPush ONE ×2 (08:30→14:30)
[2018-01-14] MEDS: POTASSIUM CHLORIDE 20 MEQ TAB.ER.PRT PO SCH ×2 (09:33→16:55)
[2018-01-14] MEDS: PANTOPRAZOLE 40 MG IV IVPush SCH ×2 (09:33→22:38)
[2018-01-14] MEDS: FUROSEMIDE 20 MG/2 ML IV SCH ×2 (09:33→16:56)
[2018-01-14] MEDS: TEMPLATE NON-FORMULARY MED. (Fluticasone/Salmeterol** (Advair 250-50 Diskus**) 1 PUFF) INH SCH (09:39)
[2018-01-14] MEDS: DOXYCYCLINE 100 MG in DEXTROSE 5% 250 ML IV SCH ×2 (10:31→22:39)
[2018-01-14] MEDS: AcetaZOLAMIDE INJ 500 MG IVPush SCH ×2 (13:15→22:38)
[2018-01-14] MEDS: NICOTINE 21 MG/24 HR PATCH.TD24 TD SCH (22:37)
[2018-01-15] VITALS (7 sets, daily range): BP systolic 90–119; BP diastolic 54–76
[2018-01-15] MEDS: METOPROLOL TARTRATE 25 MG TABLET PO SCH ×4 (00:23→23:07)
[2018-01-15] MEDS: BUDESONIDE 0.5 MG/2 ML INHA HHN SCH ×2 (06:59→19:30)
[2018-01-15] MEDS: ALBUTEROL/IPRATROPIUM 2.5MG/0.5MG, 3 ML NPPB SCH ×4 (06:59→19:30)
[2018-01-15] MEDS: POTASSIUM CHLORIDE 20 MEQ TAB.ER.PRT PO SCH ×2 (09:04→16:15)
[2018-01-15] MEDS: FUROSEMIDE 20 MG/2 ML IV SCH ×2 (09:04→12:56)
[2018-01-15] MEDS: CEFTRIAXONE PMX 1GM/50ML 50 ML IV SCH (09:04)
[2018-01-15] MEDS: DIGOXIN 0.25 MG TABLET PO SCH (09:05)
[2018-01-15] MEDS: ACETAMINOPHEN 325 MG TABLET PO PRN (09:16)
[2018-01-15] MEDS ORDERED: FUROSEMIDE 40 MG/4 ML IV ONE (10:30)
[2018-01-15] MEDS ORDERED: POTASSIUM CHLORIDE 20 MEQ TAB.ER.PRT PO ONE (10:30)
[2018-01-15] MEDS: PANTOPRAZOLE 40 MG IV IVPush SCH ×2 (10:44→22:55)
[2018-01-15] MEDS: DOXYCYCLINE 100 MG in DEXTROSE 5% 250 ML IV SCH ×2 (10:44→22:54)
[2018-01-15] MEDS: TEMPLATE NON-FORMULARY MED. (Fluticasone/Salmeterol** (Advair 250-50 Diskus**) 1 PUFF) INH SCH (10:58)
[2018-01-15] MEDS ORDERED: AcetaZOLAMIDE INJ 500 MG IVPush SCH (11:00)
[2018-01-15 12:46] LABS: OCCULT BLOOD POSITIVE (NEGATIVE)
[2018-01-15] MEDS: AcetaZOLAMIDE INJ 500 MG IVPush SCH (23:07)
[2018-01-15] MEDS: NICOTINE 21 MG/24 HR PATCH.TD24 TD SCH (23:14)
[2018-01-16 01:46] VITALS: BP 102/63
[2018-01-16 02:15] LABS: OCCULT BLOOD POSITIVE (NEGATIVE)
[2018-01-16] MEDS: ALBUTEROL/IPRATROPIUM 2.5MG/0.5MG, 3 ML NPPB SCH ×4 (07:09→19:25)
[2018-01-16] MEDS: BUDESONIDE 0.5 MG/2 ML INHA HHN SCH (07:11)
[2018-01-16 07:24] LABS: MEAN CORPUSCULAR HEMOGLOBIN 29.3 pg (27.0-34.8); MEAN CORPUSCULAR HGB CONC 31.4 g/dL (32.4-35.8); MEAN CORPUSCULAR VOLUME 93.5 fL (80-100); MEAN PLATELET VOLUME 7.5 fL (7.4-10.4); PLATELET COUNT 341 x10^3/uL (130-400); RED BLOOD COUNT 3.18 x10^6/uL (3.82-5.3)
[2018-01-16 07:25] LABS: BASOPHILS # (AUTO) 0.05 x10^3/uL (0-0.1); BASOPHILS % (AUTO) 1 % (0-1); EOSINOPHILS % (AUTO) 4 % (1-7); LYMPHOCYTES # (AUTO) 1.05 x10^3/uL (1-3.4); LYMPHOCYTES % (AUTO) 13 % (22-44); MD NO; MONOCYTES # (AUTO) 0.57 x10^3/uL (0.2-0.8); MONOCYTES % (AUTO) 7 % (2-9); NEUTROPHILS # (AUTO) 6.18 x10^3/uL (1.8-6.8); NEUTROPHILS % (AUTO) 76 % (42-75)
[2018-01-16 07:32] LABS: ALBUMIN 2.6 g/dL (3.4-5.0); ANION GAP 3 mmol/L (5-15); CALCIUM 8.9 mg/dL (8.5-10.1); CHLORIDE 104 mmol/L (98-107)
[2018-01-16 07:33] LABS: CREATININE 0.71 mg/dL (0.55-1.02)
[2018-01-16 07:57] VITALS: BP 131/72
[2018-01-16] MEDS: CEFTRIAXONE PMX 1GM/50ML 50 ML IV SCH (08:20)
[2018-01-16] MEDS: FUROSEMIDE 20 MG/2 ML IV SCH ×2 (08:20→17:00)
[2018-01-16] MEDS: POTASSIUM CHLORIDE 20 MEQ TAB.ER.PRT PO SCH ×2 (08:24→17:00)
[2018-01-16] MEDS: METOPROLOL TARTRATE 25 MG TABLET PO SCH ×2 (08:24→15:43)
[2018-01-16] MEDS: TEMPLATE NON-FORMULARY MED. (Fluticasone/Salmeterol** (Advair 250-50 Diskus**) 1 PUFF) INH SCH ×2 (08:25→19:37)
[2018-01-16] MEDS: DIGOXIN 0.25 MG TABLET PO SCH (08:25)
[2018-01-16] MEDS: DOXYCYCLINE 100 MG in DEXTROSE 5% 250 ML IV SCH ×2 (10:18→23:09)
[2018-01-16] MEDS: PANTOPRAZOLE 40 MG IV IVPush SCH ×2 (10:18→23:09)
[2018-01-16 11:05] VITALS: BP 102/65
[2018-01-16] MEDS: AcetaZOLAMIDE INJ 500 MG IVPush SCH (11:07)
[2018-01-16 15:17] VITALS: BP 101/67
[2018-01-16 17:51] VITALS: BP 91/58
[2018-01-16 20:00] VITALS: BP 107/69
[2018-01-17] MEDS: METOPROLOL TARTRATE 25 MG TABLET PO SCH ×4 (00:37→23:32)
[2018-01-17] MEDS: NICOTINE 21 MG/24 HR PATCH.TD24 TD SCH ×2 (00:37→23:31)
[2018-01-17 00:39] VITALS: BP 113/74
[2018-01-17] MEDS: DOXYCYCLINE 100MG TABLET PO SCH ×3 (01:29→21:21)
[2018-01-17 05:16] LABS: ALBUMIN 2.4 g/dL (3.4-5.0); ANION GAP 7 mmol/L (5-15); CALCIUM 8.7 mg/dL (8.5-10.1); CHLORIDE 107 mmol/L (98-107)
[2018-01-17 05:17] LABS: CREATININE 0.76 mg/dL (0.55-1.02)
[2018-01-17] MEDS: ALBUTEROL/IPRATROPIUM 2.5MG/0.5MG, 3 ML NPPB SCH ×4 (07:40→20:00)
[2018-01-17 08:21] VITALS: BP 106/69
[2018-01-17] MEDS: TEMPLATE NON-FORMULARY MED. (Fluticasone/Salmeterol** (Advair 250-50 Diskus**) 1 PUFF) INH SCH ×2 (09:00→21:00)
[2018-01-17] MEDS: POTASSIUM CHLORIDE 20 MEQ TAB.ER.PRT PO SCH (09:01)
[2018-01-17] MEDS: DIGOXIN 0.25 MG TABLET PO SCH (09:02)
[2018-01-17] MEDS ORDERED: FUROSEMIDE 40 MG TABLET PO ONE (10:00)
[2018-01-17] MEDS: FUROSEMIDE 20 MG/2 ML IV SCH (10:00)
[2018-01-17] MEDS ORDERED: PANTOPROZOLE 40MG TABLET PO ONE (10:00)
[2018-01-17] MEDS: PANTOPRAZOLE 40 MG IV IVPush SCH (10:22)
[2018-01-17] MEDS ORDERED: DIGOXIN 0.25 MG TABLET PO ONE (12:00)
[2018-01-17 15:46] VITALS: BP 99/65
[2018-01-17] MEDS: [UNRECOGNIZED DRUG - REMARK] MC SCH ×2 (16:30→22:25)
[2018-01-17 19:33] VITALS: BP 104/66
[2018-01-17] MEDS: NITROFURANTOIN (MACROBID) 100 MG CAPSULE PO SCH (21:21)
[2018-01-17 23:30] VITALS: BP 113/74
[2018-01-18] MEDS: ACETAMINOPHEN 325 MG TABLET PO PRN (00:39)
[2018-01-18 01:45] VITALS: BP 111/77
[2018-01-18 04:52] LABS: BASOPHILS # (AUTO) 0.04 x10^3/uL (0-0.1); BASOPHILS % (AUTO) 1 % (0-1); EOSINOPHILS % (AUTO) 4 % (1-7); LYMPHOCYTES # (AUTO) 1.47 x10^3/uL (1-3.4); LYMPHOCYTES % (AUTO) 17 % (22-44); MD NO; MEAN CORPUSCULAR HEMOGLOBIN 30.2 pg (27.0-34.8); MEAN CORPUSCULAR HGB CONC 32.9 g/dL (32.4-35.8); MEAN CORPUSCULAR VOLUME 91.7 fL (80-100); MEAN PLATELET VOLUME 7.5 fL (7.4-10.4); MONOCYTES # (AUTO) 0.65 x10^3/uL (0.2-0.8); MONOCYTES % (AUTO) 8 % (2-9); NEUTROPHILS % (AUTO) 71 % (42-75); PLATELET COUNT 357 x10^3/uL (130-400); RED BLOOD COUNT 3.13 x10^6/uL (3.82-5.3)
[2018-01-18 05:04] LABS: ANION GAP 8 mmol/L (5-15); CALCIUM 8.8 mg/dL (8.5-10.1); CHLORIDE 107 mmol/L (98-107); CREATININE 0.69 mg/dL (0.55-1.02)
[2018-01-18] MEDS ORDERED: PANTOPROZOLE 40MG TABLET PO SCH (06:00)
[2018-01-18] MEDS: [UNRECOGNIZED DRUG - REMARK] MC SCH ×2 (06:02→14:30)
[2018-01-18] MEDS: ALBUTEROL/IPRATROPIUM 2.5MG/0.5MG, 3 ML NPPB SCH ×3 (07:00→14:50)
[2018-01-18 07:39] VITALS: BP 111/69
[2018-01-18] MEDS: METOPROLOL TARTRATE 25 MG TABLET PO SCH (08:25)
[2018-01-18] MEDS: NITROFURANTOIN (MACROBID) 100 MG CAPSULE PO SCH (08:28)
[2018-01-18] MEDS: DOXYCYCLINE 100MG TABLET PO SCH (08:28)
[2018-01-18] MEDS: TEMPLATE NON-FORMULARY MED. (Fluticasone/Salmeterol** (Advair 250-50 Diskus**) 1 PUFF) INH SCH (08:30)
[2018-01-18] MEDS ORDERED: FUROSEMIDE 20 MG TABLET PO SCH (09:00)
[2018-01-18] MEDS ORDERED: DIGOXIN 0.25 MG TABLET PO SCH (09:00)
[2018-01-18] MEDS ORDERED: POTASSIUM CHLORIDE 10 MEQ TABLET.ER PO SCH (09:00)
[2018-01-18 12:21] VITALS: BP 112/71
[2018-01-18] MEDS ORDERED: PANT40TA5 PO (13:12)
[2018-01-18] MEDS ORDERED: ACET250T2 PO (13:12)
== END 2018-01-18 16:00 | disposition home health service (06) | DRG 871 ==
LOC: ED 18:38 → SUATTDRO 20:14 → 5SO 20:15 → DCLOUNGE 01-18 15:45
PROVIDERS: ADMIT Hospitalist; ATTEND Hospitalist
PROC: 30233N1 Transfusion of Nonautologous Red Blood Cells into Peripheral Vein, Percutaneous Approach (ICD-10-PCS; principal; 2018-01-11)
PROC: 0T9B70Z Drainage of Bladder with Drainage Device, Via Natural or Artificial Opening (ICD-10-PCS; 2018-01-11)
PROC: 0DB68ZX Excision of Stomach, Via Natural or Artificial Opening Endoscopic, Diagnostic (ICD-10-PCS; 2018-01-13)
DX: A41.9 Sepsis, unspecified organism (principal); J96.21 Acute and chronic respiratory failure with hypoxia; E43 Unspecified severe protein-calorie malnutrition; I50.33 Acute on chronic diastolic (congestive) heart failure; K25.4 Chronic or unspecified gastric ulcer with hemorrhage; L03.116 Cellulitis of left lower limb; L03.115 Cellulitis of right lower limb; D62 Acute posthemorrhagic anemia; D68.69 Other thrombophilia; E66.2 Morbid (severe) obesity with alveolar hypoventilation; I48.1 Persistent atrial fibrillation; J98.11 Atelectasis; N39.0 Urinary tract infection, site not specified; Z68.42 Body mass index [BMI] 45.0-49.9, adult; B96.20 Unspecified Escherichia coli [E. coli] as the cause of diseases classified elsewhere; F17.200 Nicotine dependence, unspecified, uncomplicated; I11.0 Hypertensive heart disease with heart failure; I27.29 Other secondary pulmonary hypertension; I27.81 Cor pulmonale (chronic); I08.3 Combined rheumatic disorders of mitral, aortic and tricuspid valves; I48.0 Paroxysmal atrial fibrillation; I48.2 Chronic atrial fibrillation; I87.2 Venous insufficiency (chronic) (peripheral); I87.8 Other specified disorders of veins; J44.9 Chronic obstructive pulmonary disease, unspecified; Z79.01 Long term (current) use of anticoagulants; Z83.3 Family history of diabetes mellitus; Z87.01 Personal history of pneumonia (recurrent); Z90.710 Acquired absence of both cervix and uterus; Z99.81 Dependence on supplemental oxygen; Z79.899 Other long term (current) drug therapy
CPT/HCPCS: 36415; 36600; 71045; 80048; 80053; 80162; 81001; 82040; 82272; 82803; 83735; 83880; 84100; 84443; 84484; 85014; 85018; 85025; 86850; 86900; 86923; 87040; 87077; 87086; 87186; 88305; 93005; 93970; 94640; 96374; 96375; 99291; G0378; J0696; J1940; J2704; J3370; J7060; J7620; J7626; C9113; J1120; J1160; J7030; J7050; P9016